=== PATIENT | female | born 1970 | race African-American/Black ===

== ENCOUNTER 2020-02-29 11:18 | Emergency (ER) | payer OTHER ==
[~2020-02-29] VITALS: Ht 162.6 cm; Wt 64.9 kg
[2020-02-29] MEDS ORDERED: METHIMAZOLE5 MG PO (11:29)
[2020-02-29] MEDS ORDERED: VITAMIN D3 COM1 EACH PO (11:29)
[2020-02-29 11:38] LABS: ABSOLUTE NEUTROPHILS 1.7 thou/uL (1.4-8.2); BASOPHILS 0.6 % (0.0-2.0); EOSINOPHILS 1.9 % (0.0-3.0); HEMATOCRIT 40.2 % (37.0-47.0); HEMOGLOBIN 13.9 gm/dL (12.0-15.0); LYMPHOCYTES 46.2 % (24.0-44.0); MCH 31.9 pg (26.0-34.0); MCHC 34.6 g/dL (28.0-37.0); MCV 92.3 fL (80.0-100.0); MONOCYTES 11.1 % (1.0-8.0); PLATELET COUNT 230 thou/uL (150-400); POLYS 40.2 % (36.0-66.0); RBC 4.35 mil/uL (4.20-5.00); RDW 12.3 % (10.5-14.5); WBC 4.3 thou/uL (4.0-11.0)
[2020-02-29 11:47] LABS: ANION GAP 7 mmol/L (7-16); BUN 17 mg/dL (7-18); CHLORIDE 99 mmol/L (98-107); CO2 30 mmol/L (21-32); CREATININE 0.8 mg/dL (0.6-1.0); GLUCOSE 102 mg/dL (74-106); POTASSIUM 4.2 mmol/L (3.5-5.1); SODIUM 136 mmol/L (136-145)
[2020-02-29 11:55] LABS: TROPONIN-I <0.06 ng/mL (<0.06)
[2020-02-29 12:31] VITALS: BP 117/67
--- NOTE | 2020-02-29 16:40 | EKG ---
[facility] [address] [place] [address] ELECTROCARDIOGRAM REPORT Name: BLAKE WHITTEN Room #: DEP [facility]#: [id number] Admission: 02/29/20 Attend Phys: Discharge: 02/29/20 Date of : 66 Report #: [id number] THIS REPORT FOR: cc: Xena Fatima MD, Sequita MD Lundgren,Stu Abrams MD [facility] ~ THIS REPORT FOR: //name// [facility] ED Test Date: 2020-02-29 Test Time: 11:25:20 Pat Name: BLAKE WHITTEN Department: Room: Gender: F Chief Communications Officer: [facility] : 1970 Requested By: Pawan Anderson Order Number: [id number] MD: Stu Whiting Measurements Intervals Catherine Rate: 70 P: 63 CA: 150 QRS: 40 QRSD: 94 T: 19 QT: 370 QTc: 400 Interpretive Statements Sinus rhythm No significant abnormality No previous ECG available for comparison Electronically Signed On 02-29-2020 16:40:00 CDT by Stu Whiting [email or web address] <ELECTRONICALLY SIGNED> By: Stu Whiting MD, FAC 02/29/20 [facility] 1125 1125 Stu Whiting MD, [facility] /EPI
== END 2020-02-29 12:35 | disposition home or self-care (01) ==
LOC: ER 11:18
PROVIDERS: Emergency Medicine
DX: R07.89 Other chest pain (principal); E78.00 Pure hypercholesterolemia, unspecified; Z79.899 Other long term (current) drug therapy